=== PATIENT | female | born 1965 | race Hispanic/Latino ===

== ENCOUNTER 2017-11-25 21:21 | Emergency (ER) | payer BC ==
[~2017-11-25] VITALS: Ht 154.9 cm; Wt 97.5 kg
[2017-11-25] MEDS ORDERED: KETOROLAC TROMETHAMINE 60 MG/2 ML VIAL IM ONE (23:15)
[2017-11-25] MEDS ORDERED: DIAZEPAM 5 MG TAB PO SCH (23:15)
[2017-11-25 23:44] LABS: BILIRUBIN,URINE NEGATIVE (NEGATIVE); CLARITY,URINE CLEAR (CLEAR); COLOR,URINE YELLOW (YELLOW); KETONES,URINE NEGATIVE (NEGATIVE); LEUKOCYTE ESTERASE ,URINE NEGATIVE (NEGATIVE); NITRITE,URINE NEGATIVE (NEGATIVE); PROTEIN,URINE DIPSTICK NEGATIVE (NEGATIVE); URINE UROBILINOGEN 0.2 mg/dL (0.2 - 1)
[2017-11-25 23:47] LABS: BACTERIA,URINE MANY /HPF; EPITHELIAL CELLS,URINE FEW /LPF; RBC,URINE 0-5 /HPF (0-5); WBC,URINE (MAN) 0-5 /HPF (0-5)
--- NOTE | 2017-11-26 01:14 | Diagnostic Imaging Report ---
CERVICAL SPINE 4 OR 5 VIEWS Comparison: None Clinical history: Pain, left-sided the neck without trauma Findings: Visualization through C6 on lateral view. Degenerative disc changes, worse at C6-7 with uncovertebral hypertrophy and to a much lesser extent at the C5-6. Mild osseous foraminal narrowing of left C6-7. Approximately 2 mm anterolisthesis of anterior listhesis of C5 over C6. Impression: Degenerative changes, worse at C6-7. Signed by: Dr Gabby Magdaleno MD on 11/26/2017 1:10 AM
== END 2017-11-26 02:04 | disposition home or self-care (01) ==
LOC: ER 21:21
DX: M54.2 Cervicalgia (principal); S16.1XXA Strain of muscle, fascia and tendon at neck level, initial encounter
CPT/HCPCS: 72050; 81001; 93005; 99283; J1885